=== PATIENT | male | born 1925 | race Caucasian/White ===

== ENCOUNTER → 2017-02-28 | Outpatient (CLI) | payer MEDICARE, BC ==
--- NOTE | 2017-02-28 12:20 | RADRPT ---
PROCEDURE: XR Right hip and pelvis. CLINICAL INDICATION: Right hip pain. Pelvic pain. Postop. TECHNIQUE: Two views. Frontal pelvis and lateral right hip. COMPARISON: No prior studies are available for comparison. FINDINGS: There is no fracture or dislocation. Surgical clips are present in the left inguinal region. Vascular calcifications are present with ath erosclerosis. There is a right hip total arthroplasty which appears satisfactory. The left hip is grossly normal. There is no lytic or blastic lesion. The upper pelvis is not completely included on the image. IMPRESSION: 1. Satisfactory postoperative appearance of the right hip. 2. Grossly normal appearance of the left hip. 3. Prior left inguinal region surgery. 4. Atherosclerosis. RPTAT: QQ .Guido Mesa MD, MD Date Time Electronically viewed and signed by .Guido Mesa MD, on 02/28/2017 12:19 .R/
--- NOTE | 2017-02-28 20:06 | HKNOTE ---
DATE OF SERVICE: 02/28/2017 MAIN COMPLAINT: Pain in the right hip. HISTORY OF MAIN COMPLAINT: Patient is an 89-year-old male, pain in the right hip and of recent onset, slight pain in the left "hip." Patient is an 89-year-old male who [place]. He has been extremely pleased with the result of the surgery, other than the fact that the right leg ended up slightly shorter than the left leg. Patient also has a history of postherpetic pain in the right leg, which "overlaps the pain from my hip." He is under the care of Dr. Harshad Lizama, who referred him to me for further evaluation of his painful hip. Several years ago patient was diagnosed as having rheumatoid arthritis. It seems that the rheumatoid aspect of it has burnt out or in remission. Patient complains the pain in his "right hip" is localized to the right buttocks, without radiation down his leg. The postherpetic pain is in his right buttocks and radiates around his abdominal wall to the midline. He does not have any numbness or tingling in the right leg. He has no groin pain. He takes Tylenol for the pain, which seems to help somewhat. In addition to this, he occasionally gets pain along the left iliac crest. Most of his "hip pain" on the right side is also localized to the right iliac crest. He does not get any rest pain or night pain. He walks without support and can walk about half a mile. He is not limping. His right leg feels shorter than the left leg. He cannot clip his toenails, but he can put on his shoes and socks. PAST MEDICAL HISTORY: 1. Right hip replacement 10 years ago in [place], [place]. 2. "I need to have an ingrown toenail removed." PRIOR CORTISONE INTAKE: Patient took 2 mg of cortisone daily for several years for his "rheumatoid arthritis." ALCOHOL INTAKE: None. BLOOD TESTS FOR ARTHRITIS: Patient has had blood tests for arthritis, which were "positive for rheumatoid." PRIOR INJURIES TO HIPS AND KNEES: None. WORK STATUS: Patient is a retired salesman. PAST MEDICAL HISTORY: 1. Atrial fibrillation. 2. Hypertension (controlled). 3. Postherpetic neuralgia (under Pain Management by Dr. Ochoa). PAST SURGICAL HISTORY: 1. Right hip replacement 10 years ago. 2. Cataract surgery, right eye. 3. Bypass surgery on his heart (quadruple bypass). 4. Cardiac ablation for atrial fibrillation. DRUG ALLERGIES: NONE. MEDICATIONS: 1. Prednisone 2 mg a day. 2. Nexium 40 mg a day. 3. Fish oil twice a day. 4. Aspirin 81 mg a day. 5. Multivitamins daily. 6. Vitamin C daily. 7. Torsemide 5 mg daily. 8. Spironolactone 25 mg daily. 9. Lipitor 10 mg daily. 10. Pradaxa 75 mg daily. 11. Bystolic 2.5 mg daily. 12. Nitroglycerin as needed. 13. Folgard as needed. 14. Flomax. 15. Gabapentin. 16. Proprietary cream applied to the skin. FAMILY HISTORY: Noncontributory. SYSTEMS REVIEW: Age-related failing vision, history of heart attack, excess urination, excess night urination, currently on blood thinners. HABITS: The patient smoked cigars until 10 years ago. Alcohol intake: None. INSTRUMENTATION ENGINEER: Dr. Herbert Armando, [address], [address] [address]. PHYSICAL EXAMINATION: GENERAL: Patient is a remarkably fit and youthful 89-year-old male. He comes in with his . He walks without a walking aid. He walks without a trace of a limp. VITAL SIGNS: Height 5 foot 6 inches, weight pounds. Blood pressure 125/60, temperature 97.8. BACK: Examination: His back range of motion is somewhat limited, on account of age and stiffness, but he has no pain whatsoever on putting the back through its range of motion to the limits. NEUROLOGICAL: Examination: Motor strength, lower extremities is 5/5. All muscle groups tested. Deep tendon reflexes: The right knee plus, left knee plus, right ankle plus, left ankle plus. Straight leg raising is negative bilaterally at 70 degrees. Examination of the right hip: A full range of motion, without pain. Examination of the left hip: A full range of motion, without pain. Examination of right and left knees: Clinically normal, with mild crepitus in each knee. IMAGING: Plain x-rays of the pelvis and right hip obtained today at the [facility] were reviewed. These show a right total hip replacement, which has been installed without cement. All components are well aligned and are well attached to the bone, without evidence of loosening or any other underlying problem. The right hip seems to be a few millimeters shorter than the left hip. Right leg seemed to be a few millimeters shorter than the left leg. DIAGNOSES: 1. Postherpetic neuralgia. 2. Status post right total hip replacement (still functioning, without failure). 3. Possible lumbar-generated pain in the right buttocks. 4. Atrial fibrillation. 5. Hypertension (controlled). 6. History of coronary artery bypass surgery, and cardiac ablation. MANAGEMENT: 1. Patient is given reassurance that his right hip replacement has been well performed and is functioning well, without any need for any type of intervention. 2. His right "hip pain" is in a location that is atypical for a hip disorder. His right buttock pain almost certain emanates from his lumbar spine. 3. The pain that he recently developed in the left iliac crest probably has the same etiology. 4. He has tried a variety of medications and techniques for his postherpetic pain. Unfortunately, there is not much that I can contribute to the management of his postherpetic pain. 5. He is being referred for an MRI scan of the lumbar spine and will be seen here again in a week's time for re-evaluation. FINAL DIAGNOSES: 1. Status post right total hip replacement. 2. Possible right lumbar radiculopathy. 3. Postherpetic neuralgia. Dictated By: Spenser Lee MD /judson/sona /Document#: [id number]
== END | disposition home or self-care (01) ==
LOC: HKI 11:26
DX: M25.551 Pain in right hip (principal); B02.29 Other postherpetic nervous system involvement; I48.91 Unspecified atrial fibrillation; I10 Essential (primary) hypertension; Z96.641 Presence of right artificial hip joint
CPT/HCPCS: 73502; G0463

== ENCOUNTER → 2017-03-09 | Outpatient (CLI) | payer MEDICARE, BC ==
--- NOTE | 2017-03-10 09:52 | HKNOTE ---
DATE OF SERVICE: 03/09/2017 SUBJECTIVE: The patient comes in with his CAT scan for review. 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 The L5-S1 is the most significant. MANAGEMENT: The patient was advised that if he were 15 or 20 years younger he may be a candidate fo r laminectomy. He flat out states that no matter what he will not consider surgery of any kind on h is spine. The patient given a copy of my clinic notes as well as the CAT scan report. He will take these to Christiane russell . He is the pain case management assistant for further management. He will not be seen by me again. Dictated By: DEBBI PAINTING/INES Conf#: [id number] DID#: [id number]
== END | disposition home or self-care (01) ==
LOC: HKI 10:50
DX: M48.07 Spinal stenosis, lumbosacral region (principal)